=== PATIENT | male | born 1995 | race Two or more races ===

== ENCOUNTER 2019-05-27 21:27 | Emergency (ER) | payer MEDICAID ==
[~2019-05-27] VITALS: Ht 180.3 cm; Wt 71.3 kg
[2019-05-27 22:14] VITALS: BP 116/72
== END 2019-05-27 22:32 | disposition home or self-care (01) ==
LOC: ED 22:25
DX: M79.89 Other specified soft tissue disorders (principal); T63.461A Toxic effect of venom of wasps, accidental (unintentional), initial encounter; Y92.89 Other specified places as the place of occurrence of the external cause
CPT/HCPCS: 99283